=== PATIENT | female | born 2000 | race Caucasian/White ===

== ENCOUNTER 2021-03-03 17:07 | Emergency (ER) | payer OTHER, SELFPAY ==
--- NOTE | ~2021-03-03 | XR_ITS ---
EXAMINATION: XR cervical spine 4-5V DATE: 03/03/2021 18:26 INDICATION: Neck injury. TECHNIQUE: 5 views of cervical spine were obtained. COMPARISON: None. FINDINGS: There is 4 degrees levocurvature of cervicothoracic spine. There is mild kyphosis of cervic al spine. Vertebral body heights and intervertebral disc heights are normal. The facet joints are nor mal. No central canal stenosis or prevertebral soft tissue swelling. IMPRESSION: 1. No fracture. Reviewed, dictated and finalized at location A. IMPRESSION: 1. No fracture.
--- NOTE | ~2021-03-03 | XR_ITS ---
EXAMINATION: XR mandible min 4V DATE: 03/03/2021 18:27 INDICATION: Mandible injury. TECHNIQUE: 4 views of the mandible were obtained. COMPARISON: None. FINDINGS: Bone alignment is normal. No fracture. The temporomandibular joints are normal. IMPRESSION: 1. Normal mandible. Reviewed, dictated and finalized at location A. IMPRESSION: 1. Normal mandible.
[2021-03-03 17:30] VITALS: BP 119/73; PULSE 73; RESP 16; TEMP 36.9; O2SAT 100
[2021-03-03] MEDS: KETOROLAC (*BKC) 60 MG/2 ML VIAL IM (18:00)
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
== END 2021-03-03 19:03 | disposition home or self-care (01) ==
PROVIDERS: Emergency Provider Nurse Practitioner
DX: S19.9XXA Unspecified injury of neck, initial encounter (principal); S09.93XA Unspecified injury of face, initial encounter; Y04.0XXA Assault by unarmed brawl or fight, initial encounter; F17.200 Nicotine dependence, unspecified, uncomplicated; K21.9 Gastro-esophageal reflux disease without esophagitis
CPT/HCPCS: 70110; 72050; 96372; 99214; G0463; J1885

== ENCOUNTER 2021-03-28 15:01 | Emergency (ER) | payer OTHER, SELFPAY ==
[2021-03-28 15:11] VITALS: BP 115/78; PULSE 82; RESP 16; TEMP 37; O2SAT 99
--- NOTE | 2021-03-28 15:37 | ED.URI ---
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 Patient states she has 1/2-week history of fever 101 p.o., yesterday vomiting x8, followed by diarrhea x2 today. This is associated with scratchy sore throat and cough; coworkers been ill with Covid. No blood, earache, loss of taste/smell, CP, rash, S OB, travel Related Data Home Medications Medication Instructions Recorded Confirmed levonorgestrel-ethinyl estrad 1 tablet PO DAILY 03/03/21 03/28/21 [Lessina] Allergies Allergy/AdvReac Type Severity Reaction Status Date / Time No Known Allergies Allergy Verified 03/28/21 15:07 Review of Systems Review of Systems: General/Constitutional: No weight loss,fever Eyes: N0: Redness,discharge Ears/Nose/Throat: No: Epistaxis,ear discharge Respiratory: Denies: Hemoptysis Gastrointestinal: No Vomiting, Bleeding-rectal Skin: No Lumps, eruption Neurologic: No Focal Weakness,Sz Hematologic: Denies: Petechiae/Purpura Psychiatric: No: Suicida ideationl All Other Systems: Reviewed and Negative [facility] Past Medical History Medical History No significant past medical history Surgical History Surgical History No significant past surgical history Social History Social History Smoking status: Current some day smoker Tobacco type: e-cigarettes/vaping Alcohol intake: current Alcohol use details: Occasional Substance use: never Comments At time of signature, agree with nursing past medical, surgical, social and family history. There is no relevant family history pertinent to the presenting complaint Exam Narrative: General Appearance: Well appearing, No distress EYE: PERRLA, Conjunctiva clear Ears: External ear normal Nose: Normal nose Mouth/Throat: Normal appearing, Normal lips, pharynx erythematous without exudate Neck: Supple Respiratory: Airway patent, No respiratory distress Cardiovascular: RRR Abdomen: Soft, Non-tender, no surgical/rebound signs Musculoskeletal: Full ROM Skin: Warm, Dry Neurological: A&O x3, CN II-X intact Psychiatric: Normal mood, Normal affect Course Vital Signs Vital signs: Vital Signs Temperature 98.6 F 03/28/21 15:11 Pulse Rate 82 03/28/21 15:11 Respiratory Rate 16 03/28/21 15:11 Blood Pressure 115/78 03/28/21 15:11 Pulse Oximetry 99 03/28/21 15:11 Temperature 98.6 F 03/28/21 15:11 Pulse Rate 82 03/28/21 15:11 Respiratory Rate 16 03/28/21 15:11 Blood Pressure 115/78 03/28/21 15:11 Pulse Oximetry 99 03/28/21 15:11 MDM - URI/Sore Throat Lab Data Labs: Lab Results 03/28/21 Range/Units 15:30 POC SARS CoV-2 Ag Negative (Negative) Strep Screen Presumptive Negative *(Reference Range: Negative)* Discharge Plan Discharge Clinical Impression: Influenza-like illness Patient Disposition: Home, Self-Care Condition: Stable Instructions: Acute Nausea and Vomiting (ED) Additional Instructions: You may try OTC preparations like fever medicines [Motrin, Tylenol antidiarrheals], [Imodium], etc. Prescriptions: New codeine-guaifenesin 10-100 mg/5 mL liquid 7.5 ml PO Q6H PRN (Reason: cough) Qty: 118 RF: 0 ondansetron HCl [Zofran] 4 mg tablet 4 mg PO DAILY 1 Days Qty: 10 RF: 0 lidocaine HCl [Lidocaine Viscous] 2 % solution 5 ml MUCOUS MEM QID PRN (Reason: pain) Qty: 100 RF: 0 No Action levonorgestrel-ethinyl estrad [Lessina] 0.1-20 mg-mcg tablet 1 tablet PO DAILY RF: 0 Other Am
== END 2021-03-28 15:50 | disposition home or self-care (01) ==
PROVIDERS: Emergency Provider Emergency Medicine
DX: J11.1 Influenza due to unidentified influenza virus with other respiratory manifestations (principal); Z20.822 Contact with and (suspected) exposure to COVID-19; F17.200 Nicotine dependence, unspecified, uncomplicated; K21.9 Gastro-esophageal reflux disease without esophagitis
CPT/HCPCS: 87081; 87426; 87880; 99213; C9803; G0463

== ENCOUNTER 2021-05-10 07:10 | Emergency (ER) | payer OTHER, SELFPAY ==
[2021-05-10 07:23] VITALS: BP 117/74; PULSE 69; RESP 16; TEMP 36.2; O2SAT 100
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
[2021-05-10 08:29] LABS: Basophils Percent Auto 0.4 % (0.2-1.2); Eosinophils Percent Auto 1.6 % (0-4.4); Hematocrit 34.8 % (37.0-47.0); Immature Granulocyte Absolute 0.02 K/mm3 (0.00-0.031); Immature Granulocyte Percent A 0.4 % (0-0.5); Lymphocytes Absolute Auto 2.34 K/mm3 (0.9-3.2); Lymphocytes Percent Auto 45.3 % (18.3-44.2); Mean Corpuscular HGB Conc 34.5 g/dl (32-36); Mean Corpuscular Hemoglobin 31.7 pg (26-34); Mean Corpuscular Volume 91.8 fl (80-100); Mean Platelet Volume 10.4 fl (7.4-10.4); Monocytes Percent Auto 8.9 % (2.6-8.5); Neutrophils Absolute Auto 2.2 K/mm3 (1.3-6.7); Neutrophils Percent Auto 43.4 % (45.5-73.1); Platelet Count Result 204 k/mm3 (150-375); Red Blood Count 3.79 M/mm3 (4.2-5.4); Red Cell Distribution Width 11.9 % (11.5-14.5); White Blood Count 5.2 K/mm3 (4.5-10.0)
[2021-05-10 08:30] LABS: Eosinophils Absolute Auto 0.1 K/mm3 (0-0.3); Monocytes Absolute Auto 0.5 K/mm3 (0.1-0.6)
[2021-05-10 08:34] LABS: Add Urine Microscopic? YES; Appearance Urine Cloudy (Clear); Bilirubin Urine Negative (Negative); Blood Urine Negative (Negative); Color Urine Yellow (Yellow); Glucose Urine UA Negative (Negative); Ketones Urine Negative (Negative); Leukocyte Esterase Ur Negative LEU/UL (Negative); Mucus Urine Rare /lpf; Nitrate Urine Negative (Negative); Protein Urine Negative (Negative); RBC Urine 0-2 /hpf (0-2); Specific Grav Ur 1.018 (1.001-1.035); Squamous Epithelial Cell Urine Many /hpf (Few); Urobilinogen Urine Negative mg/dL (<2.0); WBC Urine 0-3 /hpf
[2021-05-10 08:55] LABS: Ethanol < 10 mg/dL (<10)
[2021-05-10 09:04] LABS: Amphetamine Screen Urine Negative (Negative); Barbiturate Screen Urine Negative (Negative); Benzodiazepines Screen Urine Negative (Negative); Cannabinoid Screen Urine Positive (Negative); Cocaine Screen Urine Positive (Negative); Methadone Screen Urine Negative (Negative); Opiate Screen Urine Negative (Negative); Phencyclidine Screen Urine Negative (Negative)
[2021-05-10 09:18] LABS: Alanine Aminotransferase 18 U/L (4-35); Alkaline Phosphatase 60 U/L (38-126); Anion Gap 7 mmol/L (8-16); Aspartate Amino Transferase 24 U/L (14-36); Bilirubin,Total 0.4 mg/dL (0.2-1.3); Blood Urea Nitrogen 11 mg/dL (7-17); Carbon Dioxide 24 mmol/L (22-30); Chloride 106 mmol/L (98-107); Glucose 107 mg/dL (65-110); Potassium 3.9 mmol/L (3.4-5.0); Sodium 137 mmol/L (137-145)
[2021-05-10 09:43] LABS: Estimated CRCL calculation 104 ml/min; Estimated Glomerular Filt Rate > 60
--- NOTE | 2021-05-10 10:35 | PCCCNOTE ---
Spoke with Gregg at [facility] 05/10/21 1036, Provided name, , and location of hospital. They are unable to find in her system, advised that patient has Insurance. Per Gregg she is not eligible for services. Notified bedside ADAM Garza.
--- NOTE | 2021-05-10 10:38 | PC.NURSE ---
after being on hold with [facility] from [id number] pt not a candidate for their services.
[2021-05-10 14:55] VITALS: BP 101/66; PULSE 90; RESP 16; O2SAT 98
== END 2021-05-10 14:56 | disposition home or self-care (01) ==
PROVIDERS: Emergency Provider General Practice
DX: F32.A Depression, unspecified (principal); F19.10 Other psychoactive substance abuse, uncomplicated; F17.290 Nicotine dependence, other tobacco product, uncomplicated
CPT/HCPCS: 36415; 80053; 80307; 81001; 81025; 84443; 85025; 99284

== ENCOUNTER 2023-01-07 13:04 | Emergency (ER) | payer SELFPAY ==
[2023-01-07 13:21] VITALS: BP 113/82; PULSE 70; RESP 16; TEMP 36.4; O2SAT 100
[2023-01-07 13:26] VITALS: BP 113/82; PULSE 70; RESP 16; TEMP 36.4; O2SAT 100
--- NOTE | 2023-01-07 13:52 | ED.FEMALEGU ---
HPI - Female Genitourinary General Chief complaint: Urogenital-Female Stated complaint: kidney inf, severe lower back pain Source: patient and RN notes reviewed History of Present Illness HPI Narrative: 22-year-old female presents Express care today complaining of lower back pain and nausea. patient stated symptoms started on Monday this week after she worked a long shift on Monday and did not urinate all day until after work. Patient states she has been using [id number] azo to treat her symptoms without relief. Patient denies any pain with urination but reports a foul smelling urine. Patient denies any significant past medical history. Patient denies any abdominal pain, vomiting, or diarrhea. Patient denies any concerns for . Related Data Home Medications Medication Instructions Recorded Confirmed bupropion HCl 150 mg 24 hr tablet, 150 mg PO DAILY 01/07/23 01/07/23 extended release cetirizine 10 mg tablet (Zyrtec) 10 mg PO DAILY 01/07/23 01/07/23 dextroamphetamine-amphetamine 10 10 mg PO DAILY 01/07/23 01/07/23 mg tablet (Adderall) folic acid 1 mg tablet 1 mg PO DAILY 01/07/23 01/07/23 pregabalin 25 mg capsule 25 mg PO BID 01/07/23 01/07/23 trazodone 50 mg tablet 50 mg PO HS 01/07/23 01/07/23 venlafaxine 37.5 mg 37.5 mg PO DAILY 01/07/23 01/07/23 capsule,extended release 24 hr Allergies Allergy/AdvReac Type Severity Reaction Status Date / Time benzonatate Allergy Nausea and Verified 01/07/23 13:21 [From Gomez Sethi] Vomiting Review of Systems Review of Systems: CONSTITUTIONAL: Denies fever, chills, or sweats. EYES: Denies visual changes, redness, or discharge. ENT: Denies otalgia and sore throat CARDIOVASCULAR: Denies chest pain, palpitations, or edema. RESPIRATORY: Denies cough or dyspnea. GASTROINTESTINAL: Denies abdominal pain, nausea, vomiting, or diarrhea. GENITOURINARY: Denies dysuria or hematuria. REPORTS FOUL-SMELLING URINE. HER SKIN: Denies rash or itching. MUSCULOSKELETAL: Reports lower back. Denies joint pain, or myalgia. NEUROLOGIC: Denies headache, numbness, or weakness. Pertinent positives per HPI. [facility] Past Medical History Medical History No significant past medical history Surgical History Surgical History No significant past surgical history Social History Social History Smoking status: Current some day smoker Tobacco type: e-cigarettes/vaping Alcohol intake: current Alcohol use details: Occasional Substance use: never Substance use type: crack/cocaine Living arrangements: with family Occupation/Education: occupation Comments At the time of my signature, I reviewed and agree with the nursing past medical, surgical, social, and family history. There is no relevant family history pertinent to the patient complaint. Exam Narrative: GENERAL: This is a well-nourished, well-developed patient, in no apparent distress. HEAD: normocephalic, atraumatic. EYES: Sclera clear/white. Vision is grossly intact. EARS: External ears normal, auditory canals clear and without drainage, TMs normal without perforation. Hearing grossly intact. NOSE: External nose normal with no obvious nasal discharge, nares without redness, no rhinorrhea. THROAT: Mucous membranes moist, posterior pharynx clear. NECK: Neck supple, non-tender without lymphadenopathy, masses or thyromegaly. CARDIOVASCULAR: Regular rate and rhythm without murmurs, gallops, or rubs. RESPIRATORY: Clear to auscultation. Breath sounds equal bilaterally. No wheezes, rales, or rhonchi. GASTROINTESTINAL: Abdomen soft, non-tender, nondistended. Bowel sounds are active. No hepato-splenomegaly, or palpable masses. No guarding. CVA tenderness present SKIN: warm, intact with no suspicious lesions or rash, good texture and turgor
== END 2023-01-07 14:03 | disposition home or self-care (01) ==
PROVIDERS: Emergency Provider Nurse Practitioner Family
DX: N39.0 Urinary tract infection, site not specified (principal); F17.290 Nicotine dependence, other tobacco product, uncomplicated
CPT/HCPCS: 81003; 87086; 99213; G0463